=== PATIENT | male | born 1995 | race Caucasian/White ===

== ENCOUNTER 2022-02-18 01:56 | Emergency (ER) | payer MEDICAID, SELFPAY ==
[2022-02-18 01:57] VITALS: BP 145/99; PULSE 89; RESP 17; TEMP 36.3; O2SAT 91; BMI 35.9
--- NOTE | 2022-02-18 02:11 | EDS_ITS ---
HPI History of Present Illness Chief Complaint: Nausea/Vomiting Informant: patient Narrative Narrative: Patient presents with nausea vomiting and diarrhea that started Wednesday afternoon. He states he eats a lot of bad food at the food pantry and thinks he may have had something that upset him. He has never vomited blood or had blood in the stool. No black stools. No fevers. He states if he eats or drinks anything his abdomen will start to cramp get painful and then vomit. Then the pain is gone. He just cannot keep anything down so he came in. No abdominal surgeries in the past. No urinary symptoms. No back or flank pain. PFSH PFSH Medical History no medical history Home Medications dicyclomine 20 mg tablet 20 mg PO TID PRN cramps #15 tabs 02/18/22 [Rx Last Taken Unknown] ondansetron 4 mg disintegrating tablet 4 mg PO Q8H PRN nausea and vomiting #10 tabs 02/18/22 [Rx Last Taken Unknown] Allergy/AdvReac Type Severity Reaction Status Date / Time Penicillins [PCN] Allergy PT UNSURE Verified 02/18/22 02:00 OF REACTION Social History Smoking Status: Current every day smoker tobacco type: cigarettes ROS ROS ED Constitutional Constitutional ED: Denies chills, fever(s) or sweats ENT ENT ED: Denies rhinorrhea or sore throat Cardiovascular Cardiovascular: Denies chest pain or palpitations Respiratory/Chest Respiratory/Chest: Denies cough or dyspnea Gastrointestinal Gastrointestinal: Reports abdominal pain, diarrhea, nausea and vomiting; Denies constipation or melena Genitourinary Genitourinary ED: Denies dysuria, hematuria or urinary frequency Musculoskeletal Musculoskeletal: Denies back pain Integumentary Denies rash Neurologic Neurologic: Denies paresthesias or weakness Endocrine Endocrinology: Denies polydipsia or polyuria Hematologic/Lymphatic Hematologic/Lymphatic: Denies easy bleeding or easy bruising Allergic/Immunologic Allergic/Immunologic ED: Denies urticaria EXAM Physical Exam Const Vital Signs: 02/18/22 01:57 02/18/22 04:00 Temperature 97.3 F L Temperature Source Temporal Pulse Rate 89 78 Respiratory Rate 17 15 Blood Pressure 145/99 H 133/57 H Blood Pressure Mean 114 82 Pulse Ox 91 95 Oxygen Delivery Method Room Air Room Air Positive well nourished and well developed General Appearance ED: well developed and NAD; Negative for cyanotic, diaphoretic or pallor HEENT Reports dry mucous membranes Mouth ED: Yes dry mucous membranes Mouth: dry mucous membranes Eyes General Eye ED: Negative for pale conjunctiva or scleral icterus Resp normal respiratory effort and clear to auscultation bilaterally Auscultation: Negative for rales, rhonchi or wheezes Cardio regular rate and regular rhythm GI normal to inspection, nondistended, normoactive bowel sounds, non-tender and non-distended Auscultation: normoactive bowel sounds; Negative for hyperactive bowel sounds or hypoactive bowel sounds Palpation: soft; Negative for tender Back/Spine no CVA tenderness Extremity normal to inspection General Extremety ED: Negative for tenderness Neuro Sensorium / Orientation: alert Psych mental status grossly normal Skin no rashes or lesions noted General Skin Exam: Negative for jaundice or pallor MDM MDM MDM Narrative Medical decision making narrative: Patient CBC did show slight white count. Hemoglobin was up slightly which might be due to hemoconcentration. Electrolytes were normal. AST and ALT had minimal elevations but normal alk phos and bilirubin. Lipase is normal. Patient is better with IV fluids and Zofran. He still gets occasional cramping. His nausea is gone. He drank a glass of elke simone which actually felt better. I will get him some Bentyl. We will get him home with Bentyl and Zofran. I do not think he needs imaging. Repeat exam shows there is no tenderness at all. Lab Data Attestation: I reviewed the patient's lab results. Labs: Laboratory Results - last 24 hr 02/18/22 02/18/22 02:06 02:06 WBC 16.3 H RBC 5.21 Hgb 16.8 H Hct 48.8 MCV 93.7 MCH 32.2 H MCHC 34.4 RDW Std Deviation 41.8 RDW Coeff of Raúl 12.1 Plt Count 228 MPV 9.7 Immature Gran % (Auto) 0.400 Neut % (Auto) 62.2 Lymph % (Auto) 27.6 Villalba % (Auto) 7.1 Eos % (Auto) 2.1 Baso % (Auto) 0.6 Absolute Neuts (auto) 10.1 H Absolute Lymphs (auto) 4.49 Nucleated RBC % 0 Sodium 140 Potassium 3.7 Chloride 104 Carbon Dioxide 29.0 Anion Gap 7 BUN 12 Creatinine 1.10 Estim Creat Clear Calc 123.84 Est GFR (MDRD) Af Amer 103 Est GFR (MDRD) Non-Af 85 BUN/Creatinine Ratio 10.9 Glucose 93 Calcium 9.4 Total Bilirubin 0.40 AST 54 H ALT 112 H Alkaline Phosphatase 76 Total Protein 7.5 Albumin 3.8 Globulin 3.7 Albumin/Globulin Ratio 1.0 Lipase 84 Discharge Plan Triage Chief Complaint: Nausea/Vomiting Other Complaint: Lower Extremity Injury ED Provider: Mega Hawkins Dx/Rx/DC Orders Clinical Impression: Nausea vomiting and diarrhea, Mild dehydration Instructions: ED Vomiting and Diarrhea ... Prescriptions: New ondansetron 4 mg tablet,disintegrating 4 mg PO Q8H PRN (Reason: nausea and vomiting) Qty: 10 0RF dicyclomine 20 mg tablet 20 mg PO TID PRN (Reason: cramps) Qty: 15 0RF Primary Care Provider: Care Physician,No Primary Referrals: Matt Miller MD [STAFF PHYSICIAN] - 3-5 Days if not improving NOT,DEFINED [NON-STAFF] - Disposition Disposition: Home, Self Care
[2022-02-18 02:18] LABS: Absolute Lymphocyte Count 4.49 X10^3/uL (0.83-4.51); Absolute Neutrophil Count 10.1 X10^3/uL (2.0-7.7); Basophil# 0.09 X10^3/uL; Basophil% 0.6 % (0-1); Eosinophil# 0.35 X10^3/uL; Eosinophils% 2.1 % (0-5); Hematocrit 48.8 % (40-54); Hemoglobin 16.8 g/dL (13.0-16.5); Lymphocyte # 4.49 X10^3/ul (0.83-4.51); Lymphocyte % 27.6 % (19-41); Mean Corp Hgb Conc 34.4 g/dL (32-36); Mean Corpuscular Hgb 32.2 pg (27.0-32.0); Mean Corpuscular Volume 93.7 fL (80-94); Mean Platelet Vol. 9.7 fl (6.2-12.0); Monocyte# 1.16 X10^3/uL; Monocyte% 7.1 % (0-10); NRBC Flagged by Analyzer 0 % (0-5); Neutrophil # 10.13 X10^3/uL (2.7-7.7); Neutrophil % 62.2 % (47-70); Platelet Count 228 K/mm3 (150-450); RBC Distribution Width CV 12.1 % (11.6-14.6); RBC Distribution Width SD 41.8 fl (35.1-43.9); Red Blood Count 5.21 M/mm3 (4.6-6.2); White Blood Count 16.3 K/mm3 (4.4-11.0)
[2022-02-18] MEDS: 0.9% Normal Saline 1,000 ML 1000 ML IV (02:20)
[2022-02-18] MEDS: Ondansetron 4 MG/2 ML Vial IV (02:20)
[2022-02-18 03:25] LABS: AST(SGOT) 54 U/L (15-37); Alanine Aminotransfer ALT/SGPT 112 U/L (16-61); Albumin, Serum 3.8 g/dL (3.2-5.0); Alkaline Phosphatase 76 U/L (45-117); Anion Gap 7 (5-15); BUN 12 mg/dL (7-18); BUN/Creat Ratio 10.9 RATIO (10-20); Calcium,Total 9.4 mg/dL (8.5-10.1); Chloride 104 mmol/L (98-107); EST Glomerular Filtration Rate 85 mL/min (>60); Est Glom Filt Rate - Afr Amer 103 mL/min (>60); Estimated Creatinine Clearance 123.84 ml/min; Globulin 3.7 g/dL (2.2-4.2); Glucose 93 mg/dL (74-106); Lipase 84 U/L (73-393); Potassium 3.7 mmol/L (3.5-5.1); Protein, Total 7.5 g/dL (6.4-8.2); Sodium Level 140 mmol/L (136-145)
[2022-02-18 04:00] VITALS: BP 133/57; PULSE 78; RESP 15; O2SAT 95
[2022-02-18] MEDS: Dicyclomine 10 MG Capsule 20 MG PO (04:40)
[2022-02-18 05:08] VITALS: BP 148/77; PULSE 100; RESP 16; O2SAT 98
== END 2022-02-18 05:13 | disposition home or self-care (01) ==
PROVIDERS: Emergency Provider Emergency Medicine; Visit Provider Emergency Medicine
DX: R11.2 Nausea with vomiting, unspecified (principal); E86.0 Dehydration; R19.7 Diarrhea, unspecified; F17.210 Nicotine dependence, cigarettes, uncomplicated
CPT/HCPCS: 80053; 83690; 85025; 96361; 96374; 99283; J7030; A4216; J2405